=== PATIENT | female | born 1950 | race Caucasian/White ===

== ENCOUNTER → 2018-07-08 | Outpatient (CLI) | payer BC ==
--- NOTE | 2018-07-08 16:11 | BD ---
EXAMINATION TYPE: Axial Bone Density DATE OF EXAM: 07/08/2018 COMPARISON: 2014 CLINICAL HISTORY: osteoporosis Height: 4'10 Weight: 127 FRAX RISK QUESTIONS: Secondary Osteoporosis: RISK FACTORS HISTORY OF: Postmenopausal woman: MEDICATIONS: Thyroid Medications: Which medication: Synthroid How Lon month Additional Medications: Additional History: EXAM MEASUREMENTS: Bone mineral densitometry was performed using the OMsignal System. Bone mineral density as measured about the Lumbar spine is: ----- L1-L4(G/cm2): 0.646 T Score Values are as follows: ----- L2: -4.6 ----- L3: -4.9 ----- L4: -4.6 ----- L1-L4: -4.4 Bone mineral density has: Decreased -20.0% since study of: 05/31/2015 Bone mineral density about the R hip (g/cm2): 0.634 Bone mineral density about the L hip (g/cm2): 0.653 T Score values are as follows: -----R Neck: -2.9 -----L Neck: -2.8 -----R Total: -2.8 -----L Total: -2.7 Bone mineral density has: Decreased -11.4% since study of: 05/31/2015 IMPRESSION: Osteoporosis (T Score less than -2.5). There is increased fracture risk and therapy is usually indicated based on age. Re-Screen 1-2 years. NOTE: T-SCORE=SD OF THE YOUNG ADULT MEAN.
--- NOTE | 2018-07-09 12:01 | MM ---
Reason for exam: screening (asymptomatic). Last mammogram was performed 5 years and 9 months ago. History: Patient is postmenopausal. Family history of breast cancer in paternal cousin and breast cancer in mother at age 39. Benign lumpectomy of the right breast, 2002. Took estrogen for 10 years beginning at age 49. Physical Findings: A clinical breast exam by your physician is recommended on an annual basis and results should be correlated with mammographic findings. MG 3D Screening Mammo W/Cad Bilateral CC and MLO view(s) were taken. Prior study comparison: October 05, 2012, bilateral digital screening mammo w/CAD. July 19, 2009, bilateral digital screening mammogram. The breast tissue is heterogeneously dense. This may lower the sensitivity of mammography. No suspicious abnormality. No significant changes when compared with prior studies. ASSESSMENT: Negative, BI-RAD 1 RECOMMENDATION: Routine screening mammogram of both breasts in 1 year.
== END | disposition home or self-care (01) ==
LOC: RADMAMWWP 08:33
PROVIDERS: ATTEND Family Medicine
DX: Z12.31 Encounter for screening mammogram for malignant neoplasm of breast (principal); M81.0 Age-related osteoporosis without current pathological fracture
CPT/HCPCS: 77063; 77067; 77080

== ENCOUNTER → 2022-03-28 | Outpatient (CLI) | payer OTHER ==
--- NOTE | 2022-03-29 08:11 | MM ---
Reason for Exam: Screening (asymptomatic). Last mammogram was performed 3 year(s) and 9 month(s) ago. Patient History: Menarche at age 10. First Full-Term at age 18. Hysterectomy at age 39. Postmenopausal. Estrogen for 10 years from age 49 until age 58. 2003, Benign Lumpectomy on the right side. Paternal cousin had breast cancer. Mother had breast cancer, age 39. Risk Values: Kaycee 5 year model risk: 3.6%. NCI Lifetime model risk: 9.2%. Prior Study Comparison: 07/19/2009 Bilateral Screening Mammogram, [facility]. 10/05/2012 Bilateral Screening Mammogram, [facility]. 07/08/2018 Bilateral Screening Mammogram, [facility]. Tissue Density: The breast tissue is heterogeneously dense. This may lower the sensitivity of mammography. Findings: Analyzed By CAD. There is no suspicious group of microcalcifications or new suspicious mass in either breast. Overall Assessment: Negative, BI-RAD 1 Management: Screening Mammogram of both breasts in 1 year. A clinical breast exam by your physician is recommended on an annual basis and results should be correlated with mammographic findings. Electronically signed and approved by: Alex Jiménez DO
== END | disposition home or self-care (01) ==
LOC: RADMAMWWP 15:56
PROVIDERS: ATTEND Family Medicine
DX: Z12.31 Encounter for screening mammogram for malignant neoplasm of breast (principal)
CPT/HCPCS: 77063; 77067

== ENCOUNTER → 2023-02-01 | Outpatient (CLI) | payer OTHER ==
--- NOTE | 2023-02-01 21:20 | MR ---
EXAMINATION TYPE: MR brain and iac wo/w con DATE OF EXAM: 02/01/2023 12:44 PM CLINICAL INDICATION:Female, 72 years old with history of H90.A22 hearing loss; COMPARISON: None TECHNIQUE: Multi planar, multi sequence imaging was performed through the brain. Specialized thin s equences were obtained through the internal auditory canals. Pre-and post gadolinium sequences were obtained. MR contrast: IV Contrast: 6.5 cc Gadavist FINDINGS: The dickson-white junctions, ventricular system, and cisterns appear unremarkable. Scattered foci of hi gh T2 signal intensity are seen within the periventricular white matter. Midline structures show no a bnormality. Diffusion-weighted imaging shows no evidence of restricted diffusion. The susceptibility weighted images do not reveal any evidence for micro-hemorrhage. The bone marrow signal is within normal limits. Paranasal sinuses and mastoid air cells: Mild scattered paranasal sinus disease. Visualized orbits: Orbital contents are intact. After administration of gadolinium, no abnormal enhancement is seen. Some of the temporal bone sequences demonstrate motion. The internal auditory canal sequences demonstrate no significant irregularity. The 7th cranial nerve s, 8 cranial nerves, and cerebellar pontine angles appear unremarkable. After the administration obed olinium, no abnormal enhancement is seen within the internal auditory canals. Vascular loop: None. IMPRESSION: Mild motion artifact on a few sequences. 1. No evidence of intracranial mass nor acute/subacute CVA. 2. No evidence of internal auditory canal abnormality. 3. Nonspecific white matter changes, likely secondary to small vessel ischemic disease.
== END | disposition home or self-care (01) ==
LOC: RADMRIMAIN 11:25
PROVIDERS: ATTEND Otolaryngology
DX: H90.A22 Sensorineural hearing loss, unilateral, left ear, with restricted hearing on the contralateral side (principal); R90.82 White matter disease, unspecified; H93.12 Tinnitus, left ear; H93.3X9 Disorders of unspecified acoustic nerve
CPT/HCPCS: 70553; A9585